=== PATIENT | female | born 2000 | race Two or more races ===

== ENCOUNTER 2024-12-03 16:34 | Emergency (ER) | payer OTHER ==
[~2024-12-03] VITALS: Ht 157.5 cm; Wt 72.6 kg
[~2024-12-03 16:34] MED LIST: ANTIPYRINE-BENZ15 ML; CIPRO HC OTIC S10 ML
[2024-12-03] MEDS ORDERED: YASMIN 28 TABL1 EACH (17:05)
[2024-12-03 18:17] LABS: BASO % 0.4 % (0.1-1.2); EOS # 0.28 (0.04-0.54); EOS % 2.3 % (0.7-7.0); LYMPH # 2.64 (1.18-3.74); LYMPH % 21.8 % (19.3-53.1); MEAN PLATELET VOLUME 9.50 fl (9.4-12.4); MONO # 0.68 (0.24-0.82); MONO % 5.6 % (4.7-12.5); NEUT # 8.41 (1.56-6.13); NEUT % 69.6 % (34.0-71.1); RED CELL DISTRIBUTION WIDTH 14.2 % (11.6-14.4)
[2024-12-03 18:39] LABS: INR < 0.93
[2024-12-03 18:48] LABS: ALT/SGPT 25.0 U/L (12-78); AST/SGOT 17.0 U/L (15-37); BILIRUBIN TOTAL 0.24 mg/dL (0.3-1.2); BUN CREA RATIO 19.0 (7.0-25.0); CREATININE SERUM 0.57 mg/dL (0.55-1.02); GFR 131.44; GLOBULINA 3.9 G/DL (2.4-3.5); GLUCOSE FASTING 85.0 mg/dL (65-100); OSMOLALITY SERUM 274.0 MOSM/KG (275-295)
[2024-12-03 19:43] LABS: URINE APPEARANCE Clear; URINE BILIRRUBIN Negative (NEGATIVE); URINE BLOOD Negative; URINE COLOR Yellow; URINE GLUCOSE Negative (NEGATIVE); URINE KETONE 15 (NEGATIVE); URINE LEUKOCYTE Negative; URINE NITRATE Negative; URINE PROTEIN Negative (NEGATIVE); URINE UROBILINOGEN 0.2 E.U./dl
[2024-12-03 19:45] LABS: URINE BACTERIA 23.9 uL (0.0-1933); URINE EPITHELIAL CELLS 4.9 uL (0.0-38.8); URINE RBC 8.2 uL (0.0-20.8); URINE WBC 10.1 uL (0.0-23.2)
[2024-12-03 19:46] LABS: URINE CAST 0.00 uL (0.0-1.40)
== END 2024-12-03 20:26 | disposition home or self-care (01) ==
LOC: ER 16:34
PROVIDERS: General Practice
DX: O26.892 Other specified pregnancy related conditions, second trimester (principal); R10.31 Right lower quadrant pain; N80.8 Other endometriosis; Z3A.15 15 weeks gestation of pregnancy